=== PATIENT | female | born 1995 | race American Indian/Alaskan Native ===

== ENCOUNTER 2023-07-13 13:22 | Emergency (ER) | payer OTHER ==
[~2023-07-13] VITALS: Ht 149.9 cm; Wt 94.9 kg
[~2023-07-13 13:22] MED LIST: PREDNISONE20 MG PO; SERTRALINE HCL100 MG PO; ULTRAM50 MG PO; VYVANSE40 MG PO
[2023-07-13] MEDS ORDERED: PREDNISONE20 MG PO (14:38)
[2023-07-13] MEDS ORDERED: PENICILLIN V P500 MG PO (14:38)
[2023-07-13 14:55] VITALS: BP 113/82
== END 2023-07-13 14:55 | disposition home or self-care (01) ==
LOC: ED 13:22
DX: J02.0 Streptococcal pharyngitis (principal); F17.200 Nicotine dependence, unspecified, uncomplicated; Z91.041 Radiographic dye allergy status; Z79.52 Long term (current) use of systemic steroids; Z79.899 Other long term (current) drug therapy
CPT/HCPCS: 87651; J7512

== ENCOUNTER 2023-08-18 15:41 | Emergency (ER) | payer OTHER ==
[~2023-08-18] VITALS: Ht 149.9 cm; Wt 94.6 kg
[~2023-08-18 15:41] MED LIST changes: +PENICILLIN V P500 MG PO
[2023-08-18] MEDS ORDERED: LISDEXAMFETAMIN50 MG PO (16:08)
[2023-08-18] MEDS ORDERED: LATUDA40 MG PO (16:08)
[2023-08-18 16:57] LABS: INFLUENZA B NAA NEGATIVE (NEGATIVE); RESPIRATORY SYNCYTIAL VIR NAA NEGATIVE (NEGATIVE)
[2023-08-18] MEDS ORDERED: DIFLUCAN200 MG PO (17:57)
[2023-08-18 18:00] LABS: BILIRUBIN, URINE NEGATIVE (negative); BLOOD/HGB, URINE NEGATIVE (Negative); KETONE, URINE NEGATIVE (Negative); LEUK ESTERASE, URINE NEGATIVE (negative); NITRITE, URINE NEGATIVE (negative)
[2023-08-18 18:05] VITALS: BP 125/85
[2023-08-18 19:29] LABS: N. GONORRRHOEAE BY PCR NOT DETECTED (NOT DETECT)
== END 2023-08-18 18:05 | disposition home or self-care (01) ==
LOC: ED 15:41
PROVIDERS: Emergency Medicine
DX: J06.9 Acute upper respiratory infection, unspecified (principal); F17.200 Nicotine dependence, unspecified, uncomplicated; Z91.041 Radiographic dye allergy status; Z79.899 Other long term (current) drug therapy; Z11.52 Encounter for screening for COVID-19
CPT/HCPCS: 81003; 84703; 87502; 99283; C9803; U0002

== ENCOUNTER 2025-07-02 15:39 | Emergency (ER) | payer OTHER ==
[~2025-07-02] VITALS: Ht 154.9 cm; Wt 94.1 kg
[~2025-07-02 15:39] MED LIST changes: +DIFLUCAN200 MG PO; +LATUDA40 MG PO; +LISDEXAMFETAMIN50 MG PO
[2025-07-02 15:49] VITALS: BP 120/57
== END 2025-07-02 15:49 | disposition left against medical advice (07) ==
LOC: ED 15:39
DX: Z53.21 Procedure and treatment not carried out due to patient leaving prior to being seen by health care provider (principal)

== ENCOUNTER 2025-07-22 11:59 | Emergency (ER) | payer OTHER ==
[~2025-07-22] VITALS: Ht 154.9 cm; Wt 93.3 kg
--- OUTSIDE RECORDS SUMMARY | 2025-07-22 12:01 | XMS ---
PreManage Notification: JESSICA PRAKASH Security Per Diem Registered Nurse Events No recent Security Events currently on file CRITERIA MET - 6 ED Visits in 6 Months - Group Notification - [facility] - 2 Visits in 30 Days CARE PROVIDERS -, [facility]ist: Feed Project Engineer Current [place] PHONE: [phone] -, [facility]: Feed Project Engineer Current [place] PHONE: [phone] -Georges- Dentist: Feed Project Engineer Current [facility] PHONE: [phone] [facility]: [facility] FAMILY PHONE: [phone] LASHANDA MCDANIEL Nurse Practitioner: Family Current PHONE: Unknown LASHANDA MABRY [facility] Current PHONE: Unknown SAIGE ARIAS Current PHONE: Unknown Wanda has no Care Guidelines for this patient. EAgustin VISIT COUNT (12 MO.) [address] [place] [address] [place] TOTAL 8 NOTE: Visits indicate total known visits. ED/UCC VISIT TRACKING (12 MO.) 07/22/2025 12:00 [facility] [place] TYPE: Emergency COMPLAINT: - PELVIC PAIN 07/02/2025 19:42 [facility] [place] TYPE: Emergency DIAGNOSES: - Acute tonsillitis, unspecified - Periapical abscess without sinus - dental infection 07/02/2025 15:39 [facility] [place] TYPE: Emergency COMPLAINT: - DIZZINESS DIAGNOSES: - Dizziness and giddiness - Procedure and treatment not carried out due to patient leaving prior to being seen by health care provider 05/24/2025 14:53 [employer] [facility] [place] TYPE: Emergency DIAGNOSES: - Acute candidiasis of vulva and vagina - vaginal pain 04/23/2025 19:12 [employer] [facility] [place] TYPE: Emergency DIAGNOSES: - Headache, unspecified - Heat exhaustion, unspecified, initial encounter - HEADACHE; DIZZINESS 02/15/2025 12:41 [employer] [facility] [place] TYPE: Emergency DIAGNOSES: - Acute upper respiratory infection, unspecified - Chest pain, unspecified - shortness of breath 09/06/2024 19:09 [employer] [facility] [place] TYPE: Emergency DIAGNOSES: - Other symptoms and signs involving emotional state - Pneumonia due to Mycoplasma pneumoniae - SOB 09/05/2024 18:37 [facility] [place] TYPE: Emergency DIAGNOSES: - Human metapneumovirus pneumonia - CONGESTION INPATIENT VISIT TRACKING (12 MO.) No inpatient visits to display in this time frame [id number]
[2025-07-22] MEDS ORDERED: KETOROLAC TROMETHAMINE 15 MG/ML VIAL IV ONE (12:30)
[2025-07-22 12:41] LABS: BASOPHILS 0.6 % (0.1-1.2); EOSINOPHILS 3.3 % (0.7-5.8); LYMPHOCYTES 35.3 % (19.3-51.7); MCH 24.2 PG (25.6-32.2); MCHC 31.6 g/dL (32.2-35.5); MCV 76.6 fL (79.4-94.8); MONOCYTES 10.0 % (4.7-12.5); NEUTROPHILS 50.5 % (34.0-71.1); RBC 5.00 M/uL (3.93-5.22)
[2025-07-22 12:57] LABS: ALT (SGPT) 33.0 U/L (14-59); AST (SGOT) 15.0 U/L (15-37); GLOMERULAR FILTRATION RATE,EST 120.0 mL/min (>60); PROTEIN, TOTAL 8.0 g/dL (6.4-8.2); UREA NITROGEN 7.0 mg/dL (7-18)
[2025-07-22 13:28] LABS: EPITHELIAL CELLS, WET MOUNT 1+ (NEGATIVE); SOURCE, WET MOUNT VAGINAL
[2025-07-22 13:29] LABS: CLUE CELLS, WET MOUNT NEGATIVE (NEGATIVE); RBC, WET MOUNT 3+ (NEGATIVE); TRICHOMONAS, WET MOUNT NEGATIVE (NEGATIVE); WBC, WET MOUNT NEGATIVE (NEGATIVE); YEAST, WET MOUNT NEGATIVE (NEGATIVE)
[2025-07-22 13:30] LABS: BACTERIA, WET MOUNT 1+ (NEGATIVE)
[2025-07-22 14:39] VITALS: BP 109/62
[2025-07-22 14:55] LABS: N. GONORRRHOEAE BY PCR NOT DETECTED (NOT DETECT)
== END 2025-07-22 14:37 | disposition home or self-care (01) ==
LOC: ED 11:59
PROVIDERS: Emergency Medicine
DX: N93.9 Abnormal uterine and vaginal bleeding, unspecified (principal); J45.909 Unspecified asthma, uncomplicated; F17.200 Nicotine dependence, unspecified, uncomplicated; Z79.899 Other long term (current) drug therapy; Z91.041 Radiographic dye allergy status
CPT/HCPCS: 36415; 76830; 76856; 80053; 85025; 87210; 87491; 96374; 99284-25; J1885